=== PATIENT | female | born 2005 | race Caucasian/White ===

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

== ENCOUNTER 2023-03-05 10:26 | Emergency (ER) | payer BC ==
[~2023-03-05] VITALS: Ht 172.7 cm; Wt 81.0 kg
--- NOTE | 2023-03-05 11:28 | ED GU-Female ---
General Chief Complaint: OB < 20 WEEKS Stated Complaint: 14 WKS | VAGINAL BLEEDING Nursing Triage Note: pt states she is 14 wks and woke up with vag bleeding this am. has had pelvic and upper thigh pain for a few days, notified dr miranda of the pain and has been taking tylenol and using a heating pad. Source: patient Exam Limitations: no limitations (TARIK JORDAN) History of Present Illness Date Seen by Provider: Mar 05, 2023 Time Seen by Provider: 11:24 Initial Comments Patient is a 17-year-old female who is G1, P0 who presents to the ED for abdominal cramping and vaginal bleeding. Patient states that she woke up this morning with bright red blood in her underwear. She states she went to the bathroom and noted blood in the toilet as well she wiped. She had another episo de right before arrival where she wiped and noted some blood. She believes the bleeding has stopped. She has been having generalized abdominal cramping and groin and upper thigh pain for the past 2 days. Dull crampy pain in her abdomen with sharp pain in her groin. She denies of any pain with urination frequent urination vaginal discharge or concern for sexual transmitted infection. She is currently on prenatals. She denies any nausea, vomiting, diarrhea fever, chills, chest pain or shortness of breath, back pain. Denies of any pain with eating. Patient follows Dr. Miranda. Patient denies of any leg swelling or leg pain. (TARIK JORDAN) Allergies and Home Medications Patient Home Medication List Home Medication List Reviewed: Yes (TARIK JORDAN) Review of Systems Review of Systems Constitutional: No chills EENTM: No ear pain, No blurred vision, No double vision Respiratory: No cough, No dyspnea on exertion, No short of breath Cardiovascular: No chest pain Gastrointestinal: abdominal pain; No diarrhea, No nausea, No vomiting Genitourinary: denies burning, denies discharge, denies dysuria, denies frequency; other (Vaginal bleeding) Expected Date of Delivery: Sep 01, 2023 Musculoskeletal: No back pain, No joint pain Skin: No no symptoms reported, No change in color, No change in hair/nails (TARIK JORDAN) All Other Systemes Reviewed Negative Unless Noted: Yes (TARIK JORDAN) Past Nokbndo-Qmvjsv-Vxuzef Hx Patient Social History Tobacco Use?: No Substance use?: No Alcohol Use?: No (TARIK JORDAN) Past Medical History Surgery/Hospitalization HX: ortho surg arm Expected Date of Delivery: Sep 01, 2023 (TARIK JORDAN) Physical Exam Vital Signs Vital Signs - First Documented 03/05/23 10:51 Temp 37.4 Pulse 83 Resp 18 B/P (MAP) 115/63 (80) Pulse Ox 98 (ABELINO REAVES MD) Vital Signs Capillary Refill : Less Than 3 Seconds (TARIK JORDAN) Height, Weight, BMI Height: '" Weight: lbs. oz. kg; 27.00 BMI Method: General Appearance: WD/WN, no apparent distress HEENT: PERRL/EOMI, normal ENT inspection, TMs normal, pharynx normal Neck: non-tender, full range of motion, supple Cardiovascular: regular rate, rhythm, no edema, no gallop, no JVD Respiratory: chest non-tender, lungs clear, normal breath sounds, no resp iratory distress Gastrointestinal: normal bowel sounds, soft, no organomegaly, tenderness (Bilateral lower groin tenderness. Normal bowel sounds throughout. No rebound or guarding) Back: normal inspection, no CVA tenderness Extremities: normal range of motion, non-tender, normal inspection, no pedal edema, no calf tenderness Neurologic/Psychiatric: [employer] II-XII nml as tested, no motor/sensory deficits, alert, normal mood/affect, oriented x 3 Skin: normal color, warm/dry (TARIK JORDAN) Progress/Results/Core Measures Suspected Sepsis SIRS Temperature: Pulse: 83 Respiratory Rate: 18 Laboratory Tests 03/05/23 11:32: White Blood Count 8.4 Blood Pressure 115 /63 Mean: 80 Laboratory Tests 03/05/23 11:32: Creatinine 0.64, INR Comment 1.0, Platelet Count 182, Total Bilirubin 0.4 (TARIK JORDAN) Results/Orders Lab Results Laboratory Tests Test 03/05/23 11:02 03/05/23 11:32 Range/Units Urine Color YELLOW Urine Clarity CLEAR Urine pH 8.5 5-9 Urine Specific Lucinda 1.020 1.016-1.022 Urine Protein TRACE NEGATIVE Urine Glucose (UA) NEGATIVE NEGATIVE Urine Ketones NEGATIVE NEGATIVE Urine Nitrite NEGATIVE NEGATIVE Urine Bilirubin NEGATIVE NEGATIVE Urine Urobilinogen 0.2 < = 1.0 MG/DL Urine Leukocyte Esterase NEGATIVE NEGATIVE Urine RBC (Auto) 3+ H NEGATIVE Urine RBC RARE /HPF Urine WBC 0-2 /HPF Urine Squamous Epithelial Cells 5-10 /HPF Urine Crystals NONE /LPF Urine Bacteria FEW H /HPF Urine Casts NONE /LPF Urine Mucus NEGATIVE /LPF Urine Culture Indicated YES White Blood Count 8.4 4.3-11.0 10^3/uL Red Blood Count 4.23 3.80-5.11 10^6/uL Hemoglobin 12.2 11.5-16.0 g/dL Hematocrit 36 35-52 % Mean Corpuscular Volume 85 80-99 fL Mean Corpuscular Hemoglobin 29 25-34 pg Mean Corpuscular Hemoglobin Concent 34 32-36 g/dL Red Cell Distribution Width 12.6 10.0-14.5 % Platelet Count 182 130-400 10^3/uL Mean Platelet Volume 10.6 9.0-12.2 fL Immature Granulocyte % (Auto) 0 % Neutrophils (%) (Auto) 69 42-75 % Lymphocytes (%) (Auto) 21 12-44 % Monocytes (%) (Auto) 9 0-12 % Eosinophils (%) (Auto) 1 0-10 % Basophils (%) (Auto) 1 0-10 % Neutrophils # (Auto) 5.8 1.8-7.8 10^3/uL Lymphocytes # (Auto) 1.7 1.0-4.0 10^3/uL Monocytes # (Auto) 0.7 0.0-1.0 10^3/uL Eosinophils # (Auto) 0.1 0.0-0.3 10^3/uL Basophils # (Auto) 0.0 0.0-0.1 10^3/uL Immature Granulocyte # (Auto) 0.0 0.0-0.1 10^3/uL Prothrombin Time 13.7 12.2-14.7 SEC INR Comment 1.0 0.8-1.4 Activated Partial Thromboplast Time 31 24-35 SEC Sodium Level 137 135-145 MMOL/L Potassium Level 4.3 3.6-5.0 MMOL/L Chloride Level 107 98-107 MMOL/L Carbon Dioxide Level 21 21-32 MMOL/L Anion Gap 9 5-14 MMOL/L Blood Urea Nitrogen 7 7-18 MG/DL Creatinine 0.64 0.60-1.30 MG/DL Estimat Glomerular Filtration Rate 130 BUN/Creatinine Ratio 11 Glucose Level 82 70-105 MG/DL Calcium Level 8.9 8.5-10.1 MG/DL Corrected Calcium 9.1 8.5-10.1 MG/DL Total Bilirubin 0.4 0.1-1.0 MG/DL Aspartate Amino Transf (AST/SGOT) 22 5-34 U/L Alanine Aminotransferase (ALT/SGPT) 26 0-55 U/L Alkaline Phosphatase 43 40-136 U/L Total Protein 6.5 6.4-8.2 GM/DL Albumin 3.8 3.2-4.5 GM/DL Human Chorionic Gonadotropin, Quant [id number] H <5 MIU/ML (ABELINO REAVES MD) Micro Results Microbiology 03/05/23 Wet Prep - Final, Complete (ABELINO REAVES MD) My Orders Orders - ABELINO REAVES MD Ua Culture If Indicated (03/05/23 10:51) Urine Culture (03/05/23 11:02) (ABELINO REAVES MD) Vital Signs/I&O 03/05/23 13:55 Temp 37.4 Pulse 83 Resp 18 B/P (MAP) 115/63 Pulse Ox 98 (ABELINO REAVES MD) Vital Signs/I&O Capillary Refill : Less Than 3 Seconds (TARIK JORDAN) Blood Pressure Mean: 80 Departure Communication (PCP) Patient is G1, P0 presents ED vaginal bleeding that started this morning. She is around [address] Miranda. Currently on prenatals. Lower abdominal cramping and suprapubic discomfort of the past few days. No urinary symptoms. She reports bleeding in her underwear this morning as well as when she wiped. She states bleeding seems to be improving. Currently sexually active with 1 partner. Denies fever chills chest pain short of breath or cough. CBC, CMP, coags, Rh, urinalysis, wet mount STD cultures and ultrasound of the abdomen pelvis was ordered. She does have some suprapubic and bilateral lower abdominal discomfort. This is likely more body changes from the versus surgical. Urinalysis was negative for infection. Positive for hematuria. she did not want a pelvic exam. She was able to self swab which was unremarkable for trichomonas, yeast or BV. STD cultures pending. CBC, CMP grossly unremarkable. She is not anemic. Normal coags. A positive. Beta quant 70,000. Ultrasound of the pelvis single live intrauterine with a gestational age 14 weeks and 4 days. Cervix is closed measuring 3.5 cm. heart tones 152. there is a potential subchorionic hemorrhage along the inferior aspect gestational sac near the cervix. Bleeding has stopped. At this time recommend no sexual intercourse. Recommend following up with Dr. Miranda for further evaluation and recheck with ultrasound to show improvement of the p otential subchronic hemorrhage. Recommend rest. If any worsening symptoms return back to ED such as continue worsening bleeding, lightheadedness or dizziness. (TARIK JORDAN) Impression Primary Impression: Vaginal bleeding during Disposition: 01 HOME, SELF-CARE Condition: Stable Departure-Patient Inst. Decision time for Depature: 13:50 (TARIK JORDAN) Referrals: JANAY BRAVO (PCP/Family) Primary Care Physician Patient Instructions: Bleeding In Early Add. Discharge Instructions: Recommend follow-up with Dr. Miranda for further evaluation. All discharge instructions reviewed with patient and/or family. Voiced understanding. ATTENDING PHYSICIAN NOTE: I was physically present as attending physician in the emergency department during the care of this patient, but I was not directly involved in the decision making or delivery of care for this patient. (ABELINO REAVES MD) TARIK JORDAN Mar 05, 2023 11:28 ABELINO REAVES MD Mar 05, 2023 23:13
[2023-03-05 11:29] LABS: CLARITY,URINE CLEAR; COLOR,URINE YELLOW; PH,URINE 8.5 (5-9); PROTEIN,URINE TRACE (NEGATIVE)
[2023-03-05 11:30] LABS: BACTERIA,URINE FEW /HPF; BILIRUBIN,URINE NEGATIVE (NEGATIVE); GLUCOSE, URINE (UA) NEGATIVE (NEGATIVE); KETONES,URINE NEGATIVE (NEGATIVE); LEUKOCYTE ESTERASE ,URINE NEGATIVE (NEGATIVE); NITRITE,URINE NEGATIVE (NEGATIVE); RBC,URINE RARE /HPF; WBC,URINE 0-2 /HPF
[2023-03-05 11:37] LABS: BASOPHILS % (AUTO) 1 % (0-10); EOSINOPHILS # (AUTO) 0.1 10^3/uL (0.0-0.3); EOSINOPHILS % (AUTO) 1 % (0-10); HEMATOCRIT 36 % (35-52); HEMOGLOBIN 12.2 g/dL (11.5-16.0); LYMPHOCYTES # (AUTO) 1.7 10^3/uL (1.0-4.0); LYMPHOCYTES % (AUTO) 21 % (12-44); MEAN CORPUSCULAR HEMOGLOBIN 29 pg (25-34); MEAN CORPUSCULAR HGB CONC 34 g/dL (32-36); MEAN CORPUSCULAR VOLUME 85 fL (80-99); MEAN PLATELET VOLUME 10.6 fL (9.0-12.2); MONOCYTES # (AUTO) 0.7 10^3/uL (0.0-1.0); MONOCYTES % (AUTO) 9 % (0-12); NEUTROPHILS # (AUTO) 5.8 10^3/uL (1.8-7.8); NEUTROPHILS % (AUTO) 69 % (42-75); PLATELET COUNT 182 10^3/uL (130-400); WHITE BLOOD COUNT 8.4 10^3/uL (4.3-11.0)
[2023-03-05 11:47] LABS: ALBUMIN 3.8 GM/DL (3.2-4.5)
[2023-03-05 11:48] LABS: POTASSIUM 4.3 MMOL/L (3.6-5.0); PROTHROMBIN TIME PATIENT 13.7 SEC (12.2-14.7)
[2023-03-05 11:49] LABS: CALCIUM 8.9 MG/DL (8.5-10.1)
[2023-03-05 11:50] LABS: TOTAL PROTEIN 6.5 GM/DL (6.4-8.2)
[2023-03-05 11:52] LABS: BILIRUBIN,TOTAL 0.4 MG/DL (0.1-1.0)
[2023-03-05 11:54] LABS: CREATININE SERUM 0.64 MG/DL (0.60-1.30)
--- NOTE | 2023-03-05 12:43 | Diagnostic Imaging Report ---
INDICATION: Vaginal bleeding during TECHNIQUE: Multiple real-time grayscale images were obtained over the gravid uterus. COMPARISON: None FINDINGS: There is a gestational sac with a normal morphology appropriately positioned within the uterus. Within the gestational sac there is a fetus present. Growth parameters are supplied below. The cervix measures approximately 3.5 cm in length. There is potential 0.5 cm of anechoic focus at the upper cervix, although the amniotic membranes are not present in this region and therefore this would not be compatible with funneling. There is potential subchorionic hemorrhage along the inferior margin of the gestational sac. Biometrical measurements are as follows: Biparietal 2.65 cm, age 14 weeks 5 days. Head circumference 10.00 cm, age 14 weeks 5 days. Abdominal circumference 7.76 cm, age 14 weeks 2 days. Femur length 1.37 cm, age 14 weeks 1 days. Sonographic estimate age: 14 weeks 4 days. Sonographic estimated date of delivery: 08/30/2023. Estimated Weight: 92 gm (+/- 13 gm). LMP percentile: 28%. heart rate: 152 beats per minute. Cervical length: 3.57 cm. number: 1 of 1. IMPRESSION: 1. Single live intrauterine with a gestational age of 14 weeks and 4 days. 2. Cervix is closed and measures 3.5 cm. 3. There is a potential subchorionic hemorrhage along the inferior aspect gestational sac near the cervix. Attention on follow-up imaging is suggested. Dictated by: Dictated on workstation # [id number]
[2023-03-05 13:55] VITALS: BP 115/63
== END 2023-03-05 13:54 | disposition home or self-care (01) ==
LOC: EDUNIT# 10:26 → ER 10:28
DX: O20.9 Hemorrhage in early pregnancy, unspecified (principal); Z3A.14 14 weeks gestation of pregnancy
CPT/HCPCS: 36415; 76805; 76817; 80053; 81000; 84702; 85025; 85610; 85730; 86900; 86901; 87088; 87210; 87491; 87591

== ENCOUNTER → 2023-04-18 | Outpatient (CLI) | payer BC ==
--- NOTE | 2023-04-18 12:12 | Diagnostic Imaging Report ---
INDICATION: survey. TECHNIQUE: Multiple real-time grayscale images were obtained over the gravid uterus. COMPARISON: None. FINDINGS: There is a single live fetus in a cephalic presentation. heart rate was recorded at 156 BPM. Placenta is anterior. No previa is detected. Amniotic fluid index is 12.9 cm. Cervical length is 3.3 cm. survey demonstrates kidneys, bladder and stomach to be unremarkable. brain is unremarkable. There is a four-chamber heart. There is a three-vessel cord with normal insertion. spine is unremarkable. Biometrical measurements are as follows: Biparietal 4.88 cm, age 20 weeks 6 days. Head circumference 18.06 cm, age 20 weeks 4 days. Abdominal circumference 15.85 cm, age 21 weeks 0 days. Femur length 3.28 cm, age 20 weeks 2 days. Sonographic estimate age: 20 weeks 5 days. Sonographic estimated date of delivery: 08/31/2023. Estimated Weight: 367 gm (+/- 54 gm). LMP percentile: 49%. heart rate: 156 beats per minute. number: 1 of 1. IMPRESSION: Single live IUP of approximately 20 weeks 5 days gestational age. Estimated date of confinement sonographically is 08/31/2023. No complicating features are detected. Dictated by: Dictated on workstation # [id number]
== END ==
LOC: RAD 09:32
PROVIDERS: ATTEND Nurse Practitioner Women's Health
DX: Z34.02 Encounter for supervision of normal first pregnancy, second trimester (principal); Z3A.20 20 weeks gestation of pregnancy
CPT/HCPCS: 76805